=== PATIENT | female | born 1960 | race Two or more races ===

== ENCOUNTER 2023-04-17 09:39 | Inpatient (IN) | payer OTHER ==
[~2023-04-17] VITALS: Ht 167.6 cm; Wt 91.0 kg
[2023-04-17 10:53] LABS: Basophils # (auto) 0.1 10 ^3/uL (0-0.2); Basophils % (auto) 0.8 % (0.0-2.0); Eosinophils # (auto) 0.1 10 ^3/uL (0-0.8); Eosinophils % (auto) 0.4 % (0.0-7.0); Hematocrit 47.9 % (36.0-46.0); Hemoglobin 15.8 g/dL (12.2-16.2); Lymphocytes # (auto) 2.8 10 ^3/uL (0.4-5.4); Mean Corpuscular Hemoglobin 31.9 pg (28.0-32.0); Mean Corpuscular Volume 96.8 fL (80.0-100.0); Monocytes # (auto) 0.7 10 ^3/uL (0-1.3); Monocytes % (auto) 4.5 % (0.0-12.0); Neutrophils % (auto) 75.3 % (37.0-80.0); Nucleated Red Blood Cells % 0.1 %; Red Blood Cells 4.95 10^6/uL (4.0-5.20); Red Cell Distribution Width 14.1 % (11.8-14.3); White Blood Cell 14.6 10^3/uL (4.4-10.8)
[2023-04-17] MEDS ORDERED: SODIUM CHLORIDE 0.9% 1,000 ML IV ONE ×2 (11:00→12:15)
[2023-04-17 11:08] LABS: Alanine Aminotransferase 24 U/L (7-40); Albumin 4.3 g/dL (3.2-4.8); Alkaline Phosphatase 85 U/L (46-116); Anion Gap 5 (5-15); Aspartate Aminotransferase 16 U/L (13-40); BUN/Creatinine Ratio 13.7 (10.0-20.0); Bilirubin, Total 0.3 mg/dL (0.2-1.0); Blood Urea Nitrogen 10 mg/dL (9-23); Calcium 9.3 mg/dL (8.5-10.1); Carbon Dioxide 26 mmol/L (20-30); Chloride 107 mmol/L (98-107); Glucose 110 mg/dL (74-106); Sodium 138 mmol/L (136-145); Total Protein 7.2 g/dL (5.7-8.2)
[2023-04-17 11:27] LABS: INR 1.01 (0.9-1.15); Partial Thromboplastin Time 28.8 SEC (24.5-34.5); Prothrombin Time 10.6 sec (9.3-11.8)
[2023-04-17] MEDS ORDERED: PANTOPRAZOLE 40 MG/10 ML VIAL INJ IV ONE (12:15)
[2023-04-17] MEDS ORDERED: PIPERACILLIN-TAZOB 3.375GM 100 ML IV ONE (12:15)
[2023-04-17] MEDS ORDERED: metroNIDAZOLE 500MG/100ML 100 ML IV ONE (12:15)
[2023-04-17] MEDS ORDERED: MORPHINE SULFATE 4 MG/ML SYR/VIAL IV ONE (14:15)
[2023-04-17] MEDS ORDERED: MORPHINE SULFATE INJ 2 MG/ml SYRG IV PRN (15:00)
[2023-04-17] MEDS ORDERED: ONDANSETRON HCL 4 MG/2 ML VIAL IV PRN (15:00)
[2023-04-17] MEDS ORDERED: DEXTROSE (50%) 50ML SYRG IV PRN (15:00)
[2023-04-17] MEDS ORDERED: DOCUSATE SOD 100 MG CAP PO PRN (15:00)
[2023-04-17] MEDS ORDERED: HYDROcodone-ACET 5/325MG TAB PO ONE (16:30)
[2023-04-17 17:06] VITALS: BP 184/93; PULSE 77; RESP 18; O2SAT 96
[2023-04-17] MEDS: InsuLIN REG 1unit/0.01ml Soln (100units/ml) SC SCH (18:00)
[2023-04-17] MEDS ORDERED: hydrALAZINE HCL 20 MG/ML VL IV PRN (18:00)
[2023-04-17] MEDS: SODIUM CHLORIDE 0.9% 1,000 ML IV SCH (18:46)
[2023-04-17] MEDS: PIPERACILLIN-TAZOB 3.375GM 100 ML IV SCH (18:46)
[2023-04-17] MEDS: ACCU-CHEK COMFORT CURVE STRIP VI SCH (18:46)
[2023-04-17] MEDS: MORPHINE SULFATE INJ 2 MG/ml SYRG IV PRN (18:48)
[2023-04-17 20:00] VITALS: PULSE 86; RESP 16; O2SAT 94
[2023-04-17 22:00] VITALS: BP 129/77; PULSE 84; RESP 16; TEMP 98.7; O2SAT 96
[2023-04-17 22:03] LABS: Hematocrit 46.5 % (36.0-46.0); Hemoglobin 15.3 g/dL (12.2-16.2)
[2023-04-17] MEDS: PANTOPRAZOLE 40 MG/10 ML VIAL INJ IV SCH (22:11)
[2023-04-18] MEDS: MORPHINE SULFATE INJ 2 MG/ml SYRG IV PRN ×3 (00:44→21:35)
[2023-04-18] MEDS: ACCU-CHEK COMFORT CURVE STRIP VI SCH ×5 (00:44→23:43)
[2023-04-18] MEDS: PIPERACILLIN-TAZOB 3.375GM 100 ML IV SCH ×5 (00:49→23:44)
[2023-04-18] MEDS: SODIUM CHLORIDE 0.9% 1,000 ML IV SCH ×3 (00:50→16:00)
[2023-04-18 05:00] VITALS: BP 115/75; PULSE 79; RESP 16; TEMP 98.7; O2SAT 92
[2023-04-18] MEDS: InsuLIN REG 1unit/0.01ml Soln (100units/ml) SC SCH ×5 (06:00→23:43)
[2023-04-18 06:08] LABS: Basophils # (auto) 0 10 ^3/uL (0-0.2); Basophils % (auto) 0.2 % (0.0-2.0); Eosinophils # (auto) 0.2 10 ^3/uL (0-0.8); Eosinophils % (auto) 1.7 % (0.0-7.0); Hematocrit 44.5 % (36.0-46.0); Hemoglobin 14.8 g/dL (12.2-16.2); Lymphocytes # (auto) 2.6 10 ^3/uL (0.4-5.4); Lymphocytes % (auto) 21.5 % (10.0-50.0); Mean Corpuscular Hemoglobin 32.5 pg (28.0-32.0); Mean Corpuscular Hgb Conc. 33.3 g/dL (32.0-36.0); Mean Corpuscular Volume 97.6 fL (80.0-100.0); Monocytes # (auto) 0.7 10 ^3/uL (0-1.3); Neutrophils # (auto) 8.5 10 ^3/uL (1.6-8.6); Neutrophils % (auto) 70.6 % (37.0-80.0); Nucleated Red Blood Cells % 0.1 %; Red Blood Cells 4.56 10^6/uL (4.0-5.20); Red Cell Distribution Width 14.4 % (11.8-14.3)
[2023-04-18 06:39] LABS: Alanine Aminotransferase 15 U/L (7-40); Alkaline Phosphatase 78 U/L (46-116); Anion Gap 6 (5-15); BUN/Creatinine Ratio 9.3 (10.0-20.0); Blood Urea Nitrogen 7 mg/dL (9-23); Calcium 8.2 mg/dL (8.7-10.4); Carbon Dioxide 27 mmol/L (20-30); Chloride 106 mmol/L (98-107); Glucose 109 mg/dL (74-106); Potassium 3.7 mmol/L (3.5-5.1); Sodium 139 mmol/L (136-145)
[2023-04-18 06:40] LABS: Albumin 3.8 g/dL (3.2-4.8); Aspartate Aminotransferase 17 U/L (13-40); Bilirubin, Total 0.5 mg/dL (0.2-1.0); Total Protein 6.4 g/dL (5.7-8.2)
[2023-04-18 08:00] VITALS: BP 119/67; PULSE 82; PULSE 83; RESP 16; RESP 18; TEMP 98.1; O2SAT 96
[2023-04-18] MEDS: PANTOPRAZOLE 40 MG/10 ML VIAL INJ IV SCH ×2 (09:48→21:07)
[2023-04-18 12:00] VITALS: BP 146/78; PULSE 64; RESP 16; TEMP 98; O2SAT 96
[2023-04-18 16:00] VITALS: BP 128/67; PULSE 75; RESP 18; TEMP 98.1; O2SAT 94
[2023-04-18 20:00] VITALS: RESP 19; O2SAT 95
[2023-04-18 22:00] VITALS: BP 140/60; PULSE 64; RESP 18; TEMP 98.2; O2SAT 95
[2023-04-19] MEDS: SODIUM CHLORIDE 0.9% 1,000 ML IV SCH ×3 (00:20→17:17)
[2023-04-19 05:00] VITALS: BP 157/74; PULSE 70; RESP 18; TEMP 97.5; O2SAT 96
[2023-04-19] MEDS: InsuLIN REG 1unit/0.01ml Soln (100units/ml) SC SCH ×3 (06:00→17:29)
[2023-04-19 06:17] LABS: Basophils # (auto) 0 10 ^3/uL (0-0.2); Basophils % (auto) 0.5 % (0.0-2.0); Eosinophils # (auto) 0.2 10 ^3/uL (0-0.8); Eosinophils % (auto) 2.6 % (0.0-7.0); Hematocrit 43.6 % (36.0-46.0); Hemoglobin 14.6 g/dL (12.2-16.2); Lymphocytes # (auto) 2.6 10 ^3/uL (0.4-5.4); Lymphocytes % (auto) 27.3 % (10.0-50.0); Mean Corpuscular Hemoglobin 32.1 pg (28.0-32.0); Mean Corpuscular Hgb Conc. 33.4 g/dL (32.0-36.0); Mean Corpuscular Volume 96.3 fL (80.0-100.0); Monocytes # (auto) 0.6 10 ^3/uL (0-1.3); Monocytes % (auto) 6.6 % (0.0-12.0); Neutrophils # (auto) 5.9 10 ^3/uL (1.6-8.6); Nucleated Red Blood Cells % 0.1 %; Red Blood Cells 4.53 10^6/uL (4.0-5.20); Red Cell Distribution Width 13.8 % (11.8-14.3); White Blood Cell 9.4 10^3/uL (4.4-10.8)
[2023-04-19] MEDS: ACCU-CHEK COMFORT CURVE STRIP VI SCH ×3 (06:21→17:26)
[2023-04-19] MEDS: PIPERACILLIN-TAZOB 3.375GM 100 ML IV SCH ×3 (06:25→17:26)
[2023-04-19 07:02] LABS: Anion Gap 7 (5-15); Calcium 8.5 mg/dL (8.7-10.4); Carbon Dioxide 28 mmol/L (20-30); Chloride 104 mmol/L (98-107); Potassium 3.6 mmol/L (3.5-5.1); Sodium 139 mmol/L (136-145)
[2023-04-19 07:08] LABS: BUN/Creatinine Ratio 7.5 (10.0-20.0); Blood Urea Nitrogen 6 mg/dL (9-23); Glucose 103 mg/dL (74-106)
[2023-04-19 08:00] VITALS: BP 156/94; PULSE 51; RESP 18; TEMP 98; O2SAT 98
[2023-04-19 08:24] VITALS: PULSE 68; RESP 18; O2SAT 98
[2023-04-19] MEDS: PANTOPRAZOLE 40 MG/10 ML VIAL INJ IV SCH (09:55)
[2023-04-19 12:00] VITALS: BP 159/93; PULSE 54; RESP 18; TEMP 98.1; O2SAT 98
[2023-04-19] MEDS ORDERED: PANT40TA2 PO (13:12)
[2023-04-19] MEDS ORDERED: METR-344 PO (13:12)
[2023-04-19 16:00] VITALS: BP 124/73; PULSE 67; RESP 16; TEMP 98.3; O2SAT 97
== END 2023-04-19 19:25 | disposition home or self-care (01) | DRG 246 ==
LOC: ER 09:39 → OVERFLOW 14:55 → EAST 17:12
PROVIDERS: ADMIT Nurse Practitioner Family; ATTEND Nurse Practitioner Family
DX: K55.039 Acute (reversible) ischemia of large intestine, extent unspecified (principal); D72.829 Elevated white blood cell count, unspecified; E11.9 Type 2 diabetes mellitus without complications; F17.210 Nicotine dependence, cigarettes, uncomplicated; I16.0 Hypertensive urgency; Z60.2 Problems related to living alone; K62.5 Hemorrhage of anus and rectum; R91.1 Solitary pulmonary nodule; Z90.49 Acquired absence of other specified parts of digestive tract; Z90.710 Acquired absence of both cervix and uterus
CPT/HCPCS: 36415; 74176; 80048; 80053; 82962; 83036; 83605; 85014; 85018; 85025; 85610; 85730; 87040; 99291; C9113; G0378; J2405; J2543; J3490

== ENCOUNTER 2024-12-03 11:32 | Emergency (ER) | payer OTHER ==
[~2024-12-03] VITALS: Ht 167.6 cm; Wt 99.4 kg
[~2024-12-03 11:32] MED LIST: METR-344 PO; PANT40TA2 PO
--- NOTE | 2024-12-03 12:45 | ED.PDOC ---
History of Present Illness HPI Comments A 63 year-old female, with a PMHX of sciatica in the legs , presents to the ED with a chief complaint of lower back pain as of X5 days ago. Patient reports that she has been taking medications for sciatica with minimal relief factors noted. Patient reports that lower back pain has worsened since 11/28/24, and she went to [facility] for relief. Patient states she was transported from that hospital to [facility] on . Patient states that at [facility] she had multiple MRIs done and was told she has a suspected abscess located next to her tailbone. Patient left the hospital AMA due to poor care and came to [facility] for further help. Patient has no further complaints at this time and otherwise denies further associated symptoms of trauma to the back or fever, chills, chest pain, dizziness, or migraine. Chief Complaint: Back Pain Time Seen by MD: 12:36 Reviewed Notes: Medications, Allergies Allergies: Coded Allergies: NO KNOWN ALLERGIES (Unverified , 04/17/23) Home Meds Active Scripts Metronidazole (Flagyl) 500 Mg Tab, 1 TAB PO TID for 7 Days, #21 TAB Prov:CINDY FIGUEREDO MD 04/19/23 Pantoprazole Sodium Sesquihydr (Protonix) 40 Mg Tab, 40 MG PO DAILY PRN for 30 Days, #60 TAB Prov:CINDY FIGUEREDO MD 04/19/23 Information Source: Patient Mode of Arrival: Ambulatory Severity: Moderate Timing: Days (5) Duration: Since onset Prehospital treatment: None Location: Lower Back Associated signs and symptoms Lower Back Pain Past Medical History PAST MEDICAL HISTORY: DM Past Medical History (Other): Sciatica Surgical History: Appendectomy, Hysterectomy 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: Denies all CHOKER SETTER Hx Family History Family History: Reviewed,noncontributory to illness Social History Smoker: Cigarettes Alcohol: Occasionally Drugs: Marijuana Lives In: Home Constitutional: denies: chills, diaphoresis, fatigue, fever, malaise, sweats, weakness, others EENTM: denies: blurred vision, double vision, ear bleeding, ear discharge, ear drainage, ear pain, ear ringing, eye pain, eye redness, hearing loss, mouth pain, mouth swelling, nasal discharge, nose bleeding, nose congestion, nose pain, photophobia, tearing, throat pain, throat swelling, voice changes, others Respiratory: denies: cough, hemoptysis, orthopnea, SOB at rest, shortness of breath, SOB with excertion, stridor, wheezing, others Cardiovascular: denies: chest pain, dizzy spells, diaphoresis, Dyspnea on exertion, edema, irregular heart beat, left arm pain, lightheadedness, palp itations, PND, syncope, others Gastrointestinal: denies: abdomen distended, abdominal pain, blood streaked bowels, constipated, diarrhea, dysphagia, difficulty swallowing, hematemesis, melena, nausea, poor appetite, poor fluid intake, rectal bleeding, rectal pain, vomiting, others Genitourinary: denies: abnormal vagina bleeding, burning, dyspareunia, dysuria, flank pain, frequency, hematuria, incontinence, pain, , vagina discharge, urgency, others Neurological: denies: dizziness, fainting, headache, left sided numbness, left sided weakness, numbness, paresthesia, pre-existing deficit, right sided numbness, right sided weakness, seizure, speech problems, tingling, tremors, weakness, others Musculoskeletal: reports: back pain; denies: gout, joint pain, joint swelling, muscle pain, muscle stiffness, neck pain, others Integumetry: denies: bruises, change in color, change in hair/nails, dryness, laceration, lesions, lumps, rash, wounds, others Allergic/Immunocompromised: denies: Difficulty Healing, Frequent Infections, Hives, Itching, others Hematologic/Lymphatic: denies: anemia, blood clots, easy bleeding, easy bruising, swollen glands, others Endocrine: denies: excessive hunger, excessive sweating, excessive thirst, excessive urination, flushing, intolerance to cold, intolerance to heat, unexplained weight gain, unexplained weight loss, others Psychiatric: denies: anxiety, bipolar disorder, depression, hopeless, panic disorder, schizophrenia, sleepless, suicidal, others All Other Systems: Reviewed and Negative Physical Exam General Appearance: Moderate Distress, Severe Distress HEENT: Normal ENT Inspection, Pharynx Normal, TMs Normal Neck: Full Range of Motion, Non-Tender, Normal, Normal Inspection Respiratory: Chest Non-Tender, Lungs Clear, No Accessory Muscle Use, No Respiratory Distress, Normal Breath Sounds Cardiovascular: No Edema, No JVD, No Murmur, No Gallop, Normal Peripheral Pulses, Regular Rate/Rhythm Breast Exam: Deferred Gastrointestinal: No Organomegaly, Non Tender, No Pulsatile Mass, Normal Bowel Sounds, Soft, Other (Capacity) Genitalia: Deferred Pelvic: Deferred Rectal: Deferred Extremities: No calf tenderness, Normal capillary refill, Normal inspection, Normal range of motion, Non-tender, No pedal edema Musculoskeletal : Location: Bilateral Extremity Location: Back, Other (Patient was admitted at [facility] where they were doing MRI did found possible abscess of the lower back but per patient she was she felt she was not treating well and left she came here to seek further care but with a on have the surgeon zechariah can not take care of her so I explained that to her and her son will take her back after I gave her some medication for the pain) Neurologic: Alert, stripe matcher II-XII nml as Tested, No Motor Deficits, Normal Affect, Normal Mood, No Sensory Deficits Cerebellar Function: Normal Reflexes: Normal Skin: Dry, Normal Color, Warm Peripheral Pulses: 1+ carotid (R), 1+ carotid (L) Lymphatic: No Adenopathy Was a procedure done? Was a procedure done?: No Differential Dx Considerations may include: Sciatica, Abscess, Chronic Back Pain X-Ray, Labs, Meds, VS Vital Signs Date Time Temp Pulse Resp B/P (MAP) Pulse Ox O2 Delivery O2 Flow Rate FiO2 12/03/24 11:48 98.2 62 20 134/81 (98) 95 98.2 X-Ray, Labs, Meds, VS Comment Patient will be discharged to follow up with [facility] where they were prepare her for surgery Time of 1ST Reevaluation: 12:45 Reevaluation 1ST: Unchanged Time of 2ND Reevaluation: 12:53 Reevaluation 2ND: Unchanged Consultation: PCP, Surgery Patient Education/Counseling: Diagnosis, Treatment, Prognosis, Need For Follow Up Family Education/Counseling: Diagnosis, Treatment, Prognosis, Need For Follow Up, No Family Present SEPSIS Sepsis Screen Date sepsis recognized/suspect: Dec 03, 2024 Time Sepsis recognized/suspect: 1144 Recent Procedure: No On Antibiotic Therapy: No Respiratory Rate >20: No Heart Rate >90: No Temp<36 C (96.8 F) or >38.3 C: No SBP <90 or MAP <65 mmHG: No New Acute Mental Status Change: No Is the patient on CPAP, BIPAP,: No Vital Signs Date Time Temp Pulse Resp B/P (MAP) Pulse Ox O2 Delivery O2 Flow Rate FiO2 12/03/24 11:48 98.2 62 20 134/81 (98) 95 98.2 Departure 1 Departure Time of Disposition: 12:53 Impression: Primary Impression: Abscess in epidural space of lumbar spine Additional Impression: Chronic back pain Qualified Codes: M54.42 - Lumbago with sciatica, left side; M54.41 - Lumbago with sciatica, right side; G89.29 - Other chronic pain Disposition: 01 HOME / SELF CARE / HOMELESS Condition: Fair Additional Instructions: Patient need to go back to [facility] and apologize for leaving AMA Discharged With: Self, Relative Critical Care Note Critical Care Time?: No Stability Stability form required: No Heart Score Heart Score: Heart Score Response (Comments) Value History N/A 0 EKG N/A 0 Age >65 2 Risk Factors 1 or 2 risk factors 1 Troponin N/A 0 Total 3 I personally scribed for SHANTHI PICKARD MD ([email or web address]) on 12/03/24 at 12:45. Electronically submitted by Seema Ware ([email or web address]). SHANTHI PICKARD MD Dec 03, 2024 12:45
[2024-12-03 12:51] VITALS: TEMP 98.6
[2024-12-03 12:57] VITALS: BP 129/63
[2024-12-03] MEDS: HYDROmorphone HCL 2 MG/ML VL/or syr IM ONE (12:57)
[2024-12-03 13:03] VITALS: PULSE 64; RESP 18; O2SAT 95
== END 2024-12-03 13:18 | disposition home or self-care (01) ==
LOC: ER 11:32
DX: G06.1 Intraspinal abscess and granuloma (principal); E11.9 Type 2 diabetes mellitus without complications; F17.210 Nicotine dependence, cigarettes, uncomplicated; Z90.49 Acquired absence of other specified parts of digestive tract; Z90.710 Acquired absence of both cervix and uterus
CPT/HCPCS: 96372; 99284; J1171; J1100